=== PATIENT | male | born 1985 | race Two or more races ===

== ENCOUNTER 2020-04-21 11:55 | Emergency (ER) | payer OTHER ==
[~2020-04-21] VITALS: Ht 188 cm; Wt 86.2 kg
[2020-04-21] MEDS ORDERED: TUSSIN DM LIQU118 ML PO (15:47)
[2020-04-21] MEDS ORDERED: ZITHROMAX500 MG PO (15:47)
[2020-04-21] MEDS ORDERED: TESSALON PERLE100 M1 PO (15:47)
== END 2020-04-21 16:12 | disposition home or self-care (01) ==
LOC: ER 11:55
DX: B34.9 Viral infection, unspecified (principal); R05 Cough; Z11.52 Encounter for screening for COVID-19

== ENCOUNTER 2020-04-23 08:37 | Emergency (ER) | payer OTHER ==
[~2020-04-23] VITALS: Ht 188 cm; Wt 86.2 kg
[~2020-04-23 08:37] MED LIST: TESSALON PERLE100 M1 PO; TUSSIN DM LIQU118 ML PO; ZITHROMAX500 MG PO
== END 2020-04-23 14:48 | disposition home or self-care (01) ==
LOC: ER 08:37
DX: J06.9 Acute upper respiratory infection, unspecified (principal); R05 Cough

== ENCOUNTER 2020-05-02 12:31 | Emergency (ER) | payer OTHER ==
[~2020-05-02] VITALS: Ht 188 cm; Wt 86.2 kg
== END 2020-05-02 18:42 | disposition home or self-care (01) ==
LOC: ER 12:31
DX: R53.1 Weakness (principal); Z20.822 Contact with and (suspected) exposure to COVID-19

== ENCOUNTER 2021-06-09 20:50 | Emergency (ER) | payer OTHER ==
[~2021-06-09] VITALS: Ht 188 cm; Wt 86.2 kg
== END 2021-06-09 23:09 | disposition home or self-care (01) ==
LOC: ER 20:50
DX: T78.1XXA Other adverse food reactions, not elsewhere classified, initial encounter (principal); R21 Rash and other nonspecific skin eruption; Z88.1 Allergy status to other antibiotic agents

== ENCOUNTER 2021-07-07 16:14 | Outpatient (CLI) | payer OTHER | END 2021-07-07 16:24 | disposition home or self-care (01) | LOC: RAD 16:14 | PROVIDERS: ATTEND Orthopaedic Surgery Sports Medicine | DX: M76.52 Patellar tendinitis, left knee (principal); M76.51 Patellar tendinitis, right knee ==

== ENCOUNTER 2024-01-31 13:55 | Emergency (ER) | payer OTHER ==
[~2024-01-31] VITALS: Ht 188 cm; Wt 86.2 kg
[2024-01-31] MEDS ORDERED: GUAIFENESIN/DEXTROMETHORPHAN 10ML BLIST.PACK PO ONE (14:30)
[2024-01-31] MEDS ORDERED: METHYLPREDNISOLONE SOD SUCC 125 MG VIAL IV ONE (14:45)
[2024-01-31] MEDS ORDERED: AZITHROMYCIN 500 MG TABLET PO ONE (14:45)
[2024-01-31] MEDS ORDERED: IPRATROPIUM/ALBUTEROL SULFATE 3 ML AMPUL.NEB IH SCH (15:00)
[2024-01-31 15:16] LABS: HEMATOCRIT 40.3 % (39.0-48.0); HEMOGLOBIN 13.5 g/dL (13-16.00); MEAN CELL VOLUME 93.2 fL (80.0-100.00); MEAN CORPUSCULAR HEMOGLOBIN 31.3 pg (27.00-32.0); MEAN CORPUSCULAR HGB CONC 33.6 g/dl (32.0-36.0); PLATELET COUNT 201 K/uL (150-450); RED BLOOD COUNT 4.33 M/uL (4.00-6.00); RED CELL DISTRIBUTION WIDTH 13.8 % (11.5-14.5)
[2024-01-31 15:43] LABS: ALBUMIN 4.2 gm/dL (3.4-5.0); BILIRUBIN TOTAL 0.42 mg/dL (0.3-1.2); CALCIUM 9.4 mg/dL (8.5-10.1); CREATININE SERUM 1.02 mg/dL (0.70-1.30); GFR 81.31; GLOBULINA 3.5 G/DL (2.4-3.5); POTASSIUM 4.68 mEq/L (3.5-5.1); TOTAL PROTEIN 7.7 gm/dL (6.4-8.2)
[2024-01-31] MEDS ORDERED: SINGULAIR10 MG PO (17:12)
[2024-01-31] MEDS ORDERED: ZITHROMAX500 MG PO (17:12)
[2024-01-31] MEDS ORDERED: IPRATROPIU0.2 MG/1 M IH (17:12)
[2024-01-31] MEDS ORDERED: MEDROLPACK PO (17:12)
[2024-01-31] MEDS ORDERED: QC TUSSIN DM L118 ML PO (17:12)
[2024-01-31] MEDS ORDERED: ALBUTEROL1.25 MG/3 IH (17:12)
== END 2024-01-31 17:38 ==
LOC: ER 13:57
PROVIDERS: General Practice
DX: J06.9 Acute upper respiratory infection, unspecified (principal); Z20.822 Contact with and (suspected) exposure to COVID-19

== ENCOUNTER 2024-02-03 15:09 | Emergency (ER) | payer OTHER ==
[~2024-02-03] VITALS: Ht 188 cm; Wt 86.2 kg
[~2024-02-03 15:09] MED LIST changes: +ALBUTEROL1.25 MG/3 IH; +IPRATROPIU0.2 MG/1 M IH; +MEDROLPACK PO; +QC TUSSIN DM L118 ML PO; +SINGULAIR10 MG PO
[2024-02-03] MEDS ORDERED: IPRATROPIUM BROMIDE 0.5 MG/2.5 ML AMPUL.NEB IH SCH (16:45)
[2024-02-03] MEDS ORDERED: GUAIFENESIN 200 MG/10 ML BLIST.PACK PO ONE (16:45)
[2024-02-03] MEDS ORDERED: BENZONATATE 100 MG CAPSULE PO ONE (16:45)
[2024-02-03] MEDS ORDERED: MAGNESIUM SULFATE IN WATER 2 GM/50 ML PIGGYBAG IV ONE (16:45)
[2024-02-03] MEDS ORDERED: METHYLPREDNISOLONE SOD SUCC 125 MG VIAL IV ONE (16:45)
[2024-02-03] MEDS ORDERED: LEVALBUTEROL HCL 1.25 MG/3 ML SOLUTION IH SCH (16:45)
[2024-02-03 18:26] LABS: HEMATOCRIT 39.7 % (39.0-48.0); HEMOGLOBIN 13.4 g/dL (13-16.00); MEAN CELL VOLUME 92.8 fL (80.0-100.00); MEAN CORPUSCULAR HEMOGLOBIN 31.4 pg (27.00-32.0); MEAN CORPUSCULAR HGB CONC 33.8 g/dl (32.0-36.0); PLATELET COUNT 183 K/uL (150-450); RED BLOOD COUNT 4.27 M/uL (4.00-6.00); RED CELL DISTRIBUTION WIDTH 13.7 % (11.5-14.5)
[2024-02-03 18:47] LABS: CALCIUM 9.3 mg/dL (8.5-10.1); CREATININE SERUM 0.95 mg/dL (0.70-1.30); GFR 88.26; POTASSIUM 4.64 mEq/L (3.5-5.1)
[2024-02-03 22:50] LABS: ABG PH 7.423 (7.35-7.45); ABG PO2 86.3 mmHg (80-100); ABG pCO2 43.2 mmHg (35-45); SaO2 96.8 %
[2024-02-03 22:51] LABS: BASE EXCESS 2.7 mmol/l; BICARBONATE 27.6 mmol/l (23-25); Tco2 28.9 mmol/l; allen test SATISFACTORY; o2 21 %; puncture site RADIAL RIGHT
== END 2024-02-03 21:20 | disposition home or self-care (01) ==
LOC: ER 15:11
PROVIDERS: General Practice
DX: J98.8 Other specified respiratory disorders (principal); Z88.8 Allergy status to other drugs, medicaments and biological substances; Z20.822 Contact with and (suspected) exposure to COVID-19